=== PATIENT | male | born 1940 | race Hispanic/Latino ===

== ENCOUNTER 2016-11-02 10:21 | Day surgery (SDC) | payer MEDICARE ==
[~2016-11-02] VITALS: Ht 172.7 cm; Wt 95.2 kg
[~2016-11-02 10:21] MED LIST: CLOT15CR4 TP; FENO145T19 PO; GABA-502 PO; GLIP10TA10 PO; KLO1T PO; LIP40 PO; LISI40TA PO; METF10002 PO; MIRT30TA6 PO; OMEP-113 PO; PROP80CA2 PO; PRV40T PO; QUET300T PO; RISP0.5T14 PO; ZYL100 PO
[2016-11-02] MEDS ORDERED: fentaNYL-PF 50 mCg/mL 2 mL Inj ONE (10:22)
[2016-11-02] MEDS ORDERED: Propofol 10,000 mCg/mL 20 mL Inj ONE (10:22)
[2016-11-02 10:32] VITALS: BP 171/86; PULSE 76; RESP 14; O2SAT 94
[2016-11-02] MEDS ORDERED: PANT40TA3 PO (10:39)
[2016-11-02] MEDS: Lactated Ringer's 1,000 ML IV ONE ×2 (10:51→11:22)
[2016-11-02] MEDS ORDERED: PREN-12 PO (10:59)
[2016-11-02] MEDS ORDERED: DOCU250C2 PO (10:59)
[2016-11-02] MEDS ORDERED: MAGN400T39 PO (10:59)
[2016-11-02] MEDS ORDERED: INSU100I13 SUBQ (10:59)
[2016-11-02] MEDS ORDERED: DIVA250T2 PO (10:59)
[2016-11-02] MEDS ORDERED: TAMS0.4C98 PO (10:59)
[2016-11-02] MEDS ORDERED: ACET-171 PO (10:59)
[2016-11-02] MEDS ORDERED: CREST10T PO (10:59)
[2016-11-02] MEDS ORDERED: ZOV800 PO (10:59)
[2016-11-02] MEDS ORDERED: METO50TA3 PO (10:59)
[2016-11-02] MEDS ORDERED: CLOP75TA28 PO (10:59)
--- NOTE | 2016-11-02 11:11 | PCM.HPANE ---
Patient Data Surgeon Admitting Provider: Attending Provider:Kevon Womack MD Primary Care Physician:Heraclio Bravo MD Other Provider:Eugeniooc,Michael Anesthesia Reason for Visit Egd Complex Ht/WT & BMI Body Mass Index Allergies Coded Allergies: simvastatin (Verified Allergy, Unknown, 11/12/14) Past Anesthesia History Anesthesia History: Denies:: Abnormal Airway, Anesthesia Reactions, Difficult Intubation, Fam Anesthesia Reaction, Fam Malignant Hypertherm, Malignant Hyperthermia Diabetes History Hx Diabetes?: Yes MRSA MRSA: No Medications Blood Thinner: Aspirin Reported Medications Acyclovir 800 Mg Oeu507 Mg PO 5XD Ref 0 11/02/16 Acetaminophen 500 Mg Ccpzub707 Mg PO Q6H PRN For Pain 11/02/16 Metoprolol Tartrate 50 Mg Tkkwxm79 Mg PO BID 30 Days Ref 0 11/02/16 Clopidogrel 75 Mg Decltg13 Mg PO DAILY Ref 0 11/02/16 Docusate Sodium 250 Mg Guhmrnu057 Mg PO DAILY PRN For Constipation Ref 0 11/02/16 Divalproex ER (Depakote ER)250 Mg Ybewib251 Mg PO DAILY Ref 0 *DAILY USE ONLY* Swallowed whole without chewing to avoid local irritation of the mouth and throat. 11/02/16 Vit W-Ca,Fe,FA(<1 mg) ( Formula)1 Each Tablet1 Each PO DAILY 11/02/16 Magnesium Oxide (Magnesium)400 Mg Symvwj882 Mg PO BID 11/02/16 Insulin Glargine (Lantus U100 Solostar Insulin Pen)100 Unit/1 Ml Insuln.pen20 Unit SUBQ DAILY #1 PENINJ Ref 0 11/02/16 Tamsulosin (Flomax)0.4 Mg Capsule0.4 Mg PO DAILY Ref 0 11/02/16 Rosuvastatin Calcium (Crestor)10 Mg Uurowy48 Mg PO DAILY 30 Days Ref 0 11/02/[address] 40 Mg Tablet.dr40 Mg PO BID Ref 0 11/02/16 Clotrimazole 15 Gm Cream..g.1 % Tp Bid 11/12/14 Mirtazapine 30 Mg Jehtzd74 Mg PO HS #30 TABLET Ref 0 11/12/14 Quetiapine Fumarate (Seroquel)300 Mg Clexll107 Mg PO HS #30 TABLET Ref 0 11/12/14 Gabapentin 300 Mg Fstwpal058 Mg PO BID 30 Days Ref 0 11/12/14 Metformin 1,000 Mg Tablet1,000 Mg PO BIDWM 30 Days Ref 0 11/12/14 Pravastatin (Pravachol)40 Mg Tab40 Mg PO HS 30 Days Ref 0 11/12/14 Allopurinol 100 Mg Fytvit774 Mg PO TID 30 Days Ref 0 11/12/14 Lisinopril 40 Mg Ieonmw14 Mg PO DAILY 30 Days Ref 0 11/12/14 Clonazepam 1 Mg Tab1 Mg PO TID PRN For Anxiety 30 Days Ref 0 11/12/14 Glipizide 10 Mg Ftiqee30 Mg PO DAILY 30 Days 11/12/14 Fenofibrate Nanocrystallized (Fenofibrate)145 Mg Gtlrgs128 Mg PO DAILY 30 Days Ref 0 11/12/14 Risperidone (Risperdal)0.5 Mg Tablet0.5 Mg PO DAILY #30 TABLET Ref 0 11/12/14 Discontinued Reported Medications Propranolol ER 80 Mg Cap.sa.24h80 Mg PO TID 11/12/14 Atorvastatin (Lipitor)40 Mg Tygqlv65 Mg PO DAILY 30 Days Ref 0 11/12/14 Omeprazole Magnesium (Omeprazole)20 Mg Capsule.dr20 Mg PO DAILY 30 Days Ref 0 11/12/14 History HEENT History: Denies:: Abnormal Airway Difficult Intubation Dysphagia Hearing Problem Hx of Heart Problems?: Yes Cardiovascular History: Positive for:: Hypertension Denies:: AICD Atrial Fibrillation Chest Pain Pacemaker Valvular Heart Disease Hx of Respiratory Problem?: No Respiratory History: Denies:: Asthma COPD Cough Hemoptysis Pneumonia Tuberculosis Neurological History: Denies:: CVA Hx of GI Problems?: Yes Gastrointestinal History: Positive for:: Gastroesphageal Reflux (REASON FOR EXAM) Denies:: Cirrhosis Diverticulitis Hiatal Hernia Rectal Bleeding Musculoskeletal History: Denies:: Joint Replacement Psycho Social History: Positive for:: Hx Depression Denies:: Anxiety Hx Surgeries?: No Hx Any Other Health Problems?: Yes Hx Diabetes: Yes Hx Alcohol Use: No Smoking Status: Never Smoker Stop/Bang Risk Assessment Category Category 1A: Patient has history of documented sleep apnea, and HAS NOT received any narcotic, sedative or anesthesia administration during this stay. Category 1B: Patient has history of documented sleep apnea, and HAS received any narcotic , sedative or anesthesia administration during this stay Category 2: Patient has SUSPECTED Obstructive Sleep Apnea, and HAS received any narcotic , sedative or anesthesia administration during this stay. Category 3: Patient has SUSPECTED Obstructive Sleep Apnea and HAS NOT received narcotic, sedative or anesthesia administration during this stay. Category 4: Outpatient in Procedural Areas with known sleep apnea or who screen positive for High Risk via the STOP/BANG questionnaire. Exam Exam General Appearance: Alert, Oriented X3, Cooperative, No Acute Distress HEENT/AIRWAY: MP 3 Lungs: Clear to Auscultation Heart: Exam Unremarkable Plan Impression Patient chart reviewed, patient interviewed and anesthestic plan with risks, benefits, and alternatives discussed, and informed consent obtained. NPO Status: > 8 hrs ASA Physical Status: ASA3 Severe Disease Anesthetic Plan: MAC Bene/Risks/Altern/Consents: Yes HP Complete Prior to Induction: Yes Dayday Bernard MD Nov 02, 2016 08:00
[2016-11-02 11:27] VITALS: BP 146/79; PULSE 69; RESP 16; O2SAT 92
--- NOTE | 2016-11-02 11:33 | PCM.ANEP2 ---
Post Anesthesia Evaluation ASA/CMS Post Anesthesia VS in Patient's Normal Range?: Yes Resp Stable; Airway Patent?: Yes CV Function & Hydration Stable: Yes Mental Status Recovered?: Yes Pain control Satisfactory?: Yes N/V Control Satisfactory?: Yes Dayday Bernard MD Nov 02, 2016 11:33
[2016-11-02 11:37] VITALS: BP 156/82; PULSE 72; RESP 16; O2SAT 95
[2016-11-02 11:47] VITALS: BP 143/82; PULSE 78; RESP 16; O2SAT 92
--- NOTE | 2016-11-02 13:43 | ENDO ---
[address] [address] ENDOSCOPY PROCEDURE PATIENT: TRISHA SIMPSON : 1940 MR#: [id number] ADMIT: 11/02/2016 JOB ID: [id number] DATE: 11/02/2016 TYPE OF OPERATION: Esophagogastroduodenoscopy with biopsy. PREOPERATIVE DIAGNOSIS(ES): Left upper quadrant pain. POSTOPERATIVE DIAGNOSIS(ES): Mild nonerosive gastritis. ANESTHESIA: Monitored anesthesia care. COMPLICATIONS: None. BLOOD LOSS: Minimal. DESCRIPTION OF PROCEDURE: After risks and benefits were explained to the patient, informed was obtained. After anesthesia administered, the upper endoscope was then inserted into the mouth intubating to the esophagus, stomach, second portion of duodenum. Mucosa carefully examined. After the procedure was done, the scope was withdrawn and the procedure terminated. FINDINGS: Upon inspection of the esophagus, the esophagus was normal without masses, ulcers or lesions. Z-line located 40 cm from incisors. Upon entering stomach, the stomach showed mild nonerosive gastritis. No masses, ulcers, or lesions were seen. Retroflexion was normal. Duodenal bulb, first and second portion normal biopsies taken of the antrum and body of the stomach. IMPRESSIONS: Mild nonerosive gastritis. RECOMMENDATIONS: 1. Await pathology results. 2. Followup in GI clinic as needed.
--- NOTE | 2016-11-03 11:20 | PATH ---
SURGICAL PATHOLOGY Attending Physician:Kevon Womack MD CASE STATUS: Signed Out PATIENT NAME: TRISHA SIMPSON PID: [id number] : 1940 DATE COLLECTED:11/02/2016 19:36 SPECIMEN: 1: Stomach, Antrum, Biopsy 2: Gastric, Biopsy CLINICAL HISTORY: 1. ANTRUM BIOPSY 2. GASTRIC BIOPSY FINAL DIAGNOSIS: 1. Stomach, Antrum, Biopsy: Antral mucosa with mild reactive gastropathy. Negative for inflammation and Helicobacter organisms. Negative for intestinal metaplasia, dysplasia and malignancy. 2. Stomach, Biopsy: Body-type gastric mucosa with no diagnostic abnormality. Negative for inflammation and Helicobacter organisms. Negative for intestinal metaplasia, dysplasia and malignancy. ICD K31.9 GROSS DESCRIPTION: The specimen is received in two formalin filled containers labeled with the patient's name. 1). The specimen is sublabeled "antrum" and consists of 2 portions of tissue which aggregate to 0.4 x 0.3 x 0.3 CM. The specimen is entirely submitted in cassette 1A. 2). The specimen is sublabeled "gastric body" and consists of 2 portions of tissue which aggregate to 0.5 x 0.3 x 0.2 CM. The specimen is entirely submitted in cassette 2A. 11/02/2016 [facility] ICD-9 CODES: CPT CODES: 1: 02096 2: 10993 Electronically Signed Out Campbell Herrera MD, PhD [facility] Pathology [facility]., [address] [place] [address], [place] [address] Technical component performed at [facility], [address] [place] [address] Ave, [address], [place], [address]
[2016-12-02] MEDS ORDERED: DOCU-41 PO (15:26)
[2016-12-02] MEDS ORDERED: INSU100I18 SUBQ (15:26)
[2016-12-02] MEDS ORDERED: DICL100G8 TOPICAL (15:26)
[2016-12-02] MEDS ORDERED: GABA600T2 PO (15:26)
== END 2016-11-02 23:59 | disposition home or self-care (01) ==
LOC: END 10:21
PROVIDERS: ATTEND Internal Medicine Gastroenterology
DX: K29.70 Gastritis, unspecified, without bleeding (principal); K31.9 Disease of stomach and duodenum, unspecified; I10 Essential (primary) hypertension; E11.9 Type 2 diabetes mellitus without complications; E78.00 Pure hypercholesterolemia, unspecified; F32.9 Major depressive disorder, single episode, unspecified; Z86.73 Personal history of transient ischemic attack (TIA), and cerebral infarction without residual deficits; Z79.4 Long term (current) use of insulin; Z79.84 Long term (current) use of oral hypoglycemic drugs; Z79.02 Long term (current) use of antithrombotics/antiplatelets
CPT/HCPCS: 43239; 88305; J7120

== ENCOUNTER 2016-12-03 11:06 | Day surgery (SDC) | payer MEDICARE ==
[~2016-12-03] VITALS: Ht 180.3 cm; Wt 95.0 kg
[~2016-12-03 11:06] MED LIST changes: +ACET-171 PO; +CLOP75TA28 PO; +CREST10T PO; +DICL100G8 TOPICAL; +DOCU-41 PO; +GABA600T2 PO; +INSU100I13 SUBQ; +INSU100I18 SUBQ; -LIP40 PO; +Lactated Ringer's 1,000 ML IV ONE; +Lactated Ringer's 1,000 ML IV SCH; +MAGN400T39 PO; +METO50TA3 PO; -OMEP-113 PO; +PANT40TA3 PO; +PREN-12 PO; -PROP80CA2 PO; +TAMS0.4C98 PO
[2016-12-03] MEDS ORDERED: Propofol 10,000 mCg/mL 20 mL Inj ONE (11:07)
[2016-12-03 11:47] VITALS: BP 163/90; PULSE 78; RESP 16; O2SAT 97
[2016-12-03] MEDS ORDERED: Lactated Ringer's 1,000 ML IV SCH (12:13)
[2016-12-03] MEDS ORDERED: Ondansetron 2 mg/mL 2 mL Inj IVPUSH PRN (12:15)
[2016-12-03] MEDS ORDERED: MetoCLOpramide 5 mg/mL 2 mL Inj IVPUSH PRN (12:15)
[2016-12-03 12:33] VITALS: BP 169/90; PULSE 67; RESP 16; O2SAT 93
[2016-12-03 12:43] VITALS: BP 173/91; PULSE 68; RESP 14; O2SAT 95
[2016-12-03 12:53] VITALS: BP 195/103; PULSE 69; RESP 16; O2SAT 93
--- NOTE | 2016-12-03 13:11 | ENDO ---
[address] [address] ENDOSCOPY PROCEDURE PATIENT: TRISHA SIMPSON : 1940 MR#: [id number] ADMIT: 12/03/2016 JOB ID: [id number] DATE: 12/03/2016 PROCEDURE: Colonoscopy. PREOPERATIVE DIAGNOSIS(ES): Constipation. POSTOPERATIVE DIAGNOSIS(ES): 1. Melanosis coli. 2. Small internal hemorrhoids. ANESTHESIA: Monitored anesthesia care. COMPLICATIONS: None. BLOOD LOSS: Minimal. DESCRIPTION OF PROCEDURE: After risks and benefits were explained to the patient, informed consent was obtained. After anesthesia administered, a colonoscope was inserted from the rectum to the cecum. Mucosa carefully examined. Prep of the patient was fair. After procedure was done, the scope withdrawn and procedure terminated. FINDINGS: Upon inspection of the anus, no masses, hemorrhoids, ulcers, or fissures that were seen. Throughout the entire examination, there are no polyps, masses or lesions. There was melanosis coli throughout the entire colon. Retroflexion showed small internal hemorrhoids. IMPRESSION: 1. Small internal hemorrhoids. 2. Melanosis coli. RECOMMENDATIONS: 1. High-fiber diet. 2. Repeat colonoscopy 10 years for colorectal cancer screening.
--- NOTE | 2016-12-03 15:42 | PCM.ANEP1 ---
Post Anesthesia Phase 1 PACU Phase 1 Assessment Vital Signs Vital Signs Date Time Temp Pulse Resp B/P Pulse Ox O2 Delivery O2 Flow Rate FiO2 12/03/16 12:53 69 16 195/103 93 Room Air 12/03/16 12:43 68 14 173/91 95 Room Air 12/03/16 12:33 67 16 169/90 93 Room Air 12/03/16 11:47 36.0 78 16 163/90 97 Room Air Anesthetic Administered: MAC Level of Alertness: Awake, talking TOMAS's with Equal Strength: Yes Pain: No Nausea or Vomiting: No Oxygen Delivery: Room Air Lungs: Clear to Auscultation, Normal Air Movement Dermatome Level: Full Sensation Dequan Khalil MD Dec 03, 2016 15:42
--- NOTE | 2016-12-03 15:42 | PCM.HPANE ---
Patient Data Surgeon Admitting Provider: Attending Provider:Kevon Womack MD Primary Care Physician:Heraclio Bravo MD Other Provider:[facility]oc[facility] Anesthesia Reason for Visit Constipation Ht/WT & BMI Body Mass Index Allergies Coded Allergies: simvastatin (Verified Allergy, Unknown, 12/03/16) Past Anesthesia History Anesthesia History: Denies:: Abnormal Airway, Anesthesia Reactions, Difficult Intubation, Fam Anesthesia Reaction, Fam Malignant Hypertherm, Malignant Hyperthermia Diabetes History Hx Diabetes?: Yes MRSA MRSA: No Medications Blood Thinner: Aspirin Reported Medications Diclofenac Gel (Voltaren Gel)100 Gm Tube1 Applic TOPICAL QID #1 TUBE 12/02/16 Insulin Lispro (HumaLOG U100 Insulin Pen)100 Unit/1 Ml Insuln.pen1 Unit SUBQ DIRECTED #1 PENINJ Ref 0 Blood Sugar Lispro Correction <151 0 units 151-175 1 unit 176-200 2 units 201-225 3 units 226-250 4 units 251-275 5 units 276-300 6 units 301-325 7 units 326-350 8 units 351-375 9 units 376-400 10 units >400 12 units Check blood sugars before meals and at bedtime. Use correction factor only before meals. 12/02/16 Gabapentin 600 Mg Npwkyh471 Mg PO HS Ref 0 12/02/16 Docusate Sodium (Colace)100 Mg Hnidczw039 Mg PO HS PRN For Constipation Ref 0 12/02/16 Acetaminophen 500 Mg Tablet1,000 Mg PO QID PRN For Pain 11/02/16 Metoprolol Tartrate 50 Mg Lsarqc25 Mg PO BID 30 Days Ref 0 11/02/16 Clopidogrel 75 Mg Vggbve21 Mg PO DAILY Ref 0 11/02/16 Vit W-Ca,Fe,FA(<1 mg) ( Formula)1 Each Tablet1 Each PO DAILY 11/02/16 Magnesium Oxide (Magnesium)400 Mg Nyphxo652 Mg PO BID 11/02/16 Insulin Glargine (Lantus U100 Solostar Insulin Pen)100 Unit/1 Ml Insuln.pen20 Unit SUBQ DAILY #1 PENINJ Ref 0 11/02/16 Tamsulosin (Flomax)0.4 Mg Capsule0.4 Mg PO DAILY Ref 0 11/02/16 Rosuvastatin Calcium (Crestor)10 Mg Oickkz74 Mg PO DAILY 30 Days Ref 0 11/02/[address] 40 Mg Tablet.dr20 Mg PO DAILY Ref 0 11/02/16 Clotrimazole 15 Gm Cream..g.1 % Tp Bid 11/12/14 Mirtazapine 30 Mg Jbrrqn43 Mg PO HS #30 TABLET Ref 0 11/12/14 Quetiapine Fumarate (Seroquel)300 Mg Mikwwl008 Mg PO HS #30 TABLET Ref 0 11/12/14 Gabapentin 300 Mg Eljnlrb642 Mg PO MORNING 30 Days Ref 0 11/12/14 Metformin 1,000 Mg Tablet1,000 Mg PO BIDWM 30 Days Ref 0 11/12/14 Allopurinol 100 Mg Tthtwy415 Mg PO HS 30 Days Ref 0 11/12/14 Lisinopril 40 Mg Uxmmag00 Mg PO DAILY 30 Days Ref 0 11/12/14 Clonazepam 1 Mg Tab1 Mg PO TID PRN For Anxiety 30 Days Ref 0 11/12/14 Glipizide 10 Mg Lncgjr84 Mg PO BID 30 Days 11/12/14 Fenofibrate Nanocrystallized (Fenofibrate)145 Mg Qqreee648 Mg PO DAILY 30 Days Ref 0 11/12/14 Risperidone (Risperdal)0.5 Mg Tablet0.5 Mg PO DAILY #30 TABLET Ref 0 11/12/14 Discontinued Reported Medications Pravastatin (Pravachol)40 Mg Tab40 Mg PO HS 30 Days Ref 0 11/12/14 Acyclovir 800 Mg Qru462 Mg PO 5XD Ref 0 11/02/16 Docusate Sodium 250 Mg Tikxslp511 Mg PO DAILY PRN For Constipation Ref 0 11/02/16 Divalproex ER (Depakote ER)250 Mg Usvxwy680 Mg PO DAILY Ref 0 *DAILY USE ONLY* Swallowed whole without chewing to avoid local irritation of the mouth and throat. 11/02/16 History HEENT History: Denies:: Abnormal Airway Difficult Intubation Dysphagia Hearing Problem Hx of Heart Problems?: Yes Cardiovascular History: Positive for:: Hypertension Denies:: AICD Atrial Fibrillation Chest Pain Pacemaker Valvular Heart Disease Hx of Respiratory Problem?: No Respiratory History: Denies:: Asthma COPD Cough Hemoptysis Pneumonia Tuberculosis Neurological History: Denies:: CVA Hx of GI Problems?: Yes Gastrointestinal History: Positive for:: Gastroesphageal Reflux (REASON FOR EXAM) Denies:: Cirrhosis Diverticulitis Hiatal Hernia Rectal Bleeding Musculoskeletal History: Denies:: Joint Replacement Psycho Social History: Positive for:: Hx Depression Denies:: Anxiety Hx Surgeries?: No Hx Any Other Health Problems?: Yes Hx Diabetes: Yes Hx Alcohol Use: No Smoking Status: Never Smoker Stop/Bang Risk Assessment Category Category 1A: Patient has history of documented sleep apnea, and HAS NOT received any narcotic, sedative or anesthesia administration during this stay. Category 1B: Patient has history of documented sleep apnea, and HAS received any narcotic , sedative or anesthesia administration during this stay Category 2: Patient has SUSPECTED Obstructive Sleep Apnea, and HAS received any narcotic , sedative or anesthesia administration during this stay. Category 3: Patient has SUSPECTED Obstructive Sleep Apnea and HAS NOT received narcotic, sedative or anesthesia administration during this stay. Category 4: Outpatient in Procedural Areas with known sleep apnea or who screen positive for High Risk via the STOP/BANG questionnaire. Exam Exam General Appearance: Alert, Oriented X3, Cooperative, No Acute Distress HEENT/AIRWAY: MP 2 Lungs: Clear to Auscultation, Normal Air Movement Heart: Exam Unremarkable, Regular Rate/Rhythm, No Murmurs/Rubs/Gallops Plan Impression Patient chart reviewed, patient interviewed and anesthestic plan with risks, benefits, and alternatives discussed, and informed consent obtained. NPO Status: > 8 hrs ASA Physical Status: ASA2 Mod Systemic Disease Anesthetic Plan: MAC Bene/Risks/Altern/Consents: Yes HP Complete Prior to Induction: Yes Dequan Khalil MD Dec 03, 2016 07:29
--- NOTE | 2016-12-03 15:42 | PCM.ANEP2 ---
Post Anesthesia Evaluation ASA/CMS Post Anesthesia VS in Patient's Normal Range?: Yes Resp Stable; Airway Patent?: Yes CV Function & Hydration Stable: Yes Mental Status Recovered?: Yes Pain control Satisfactory?: Yes N/V Control Satisfactory?: Yes Dequan Khalil MD Dec 03, 2016 15:42
== END 2016-12-03 23:59 | disposition home or self-care (01) ==
LOC: END 11:06
PROVIDERS: ATTEND Internal Medicine Gastroenterology
DX: K63.89 Other specified diseases of intestine (principal); K64.8 Other hemorrhoids; K59.00 Constipation, unspecified; R10.12 Left upper quadrant pain; K21.9 Gastro-esophageal reflux disease without esophagitis; I10 Essential (primary) hypertension; E11.9 Type 2 diabetes mellitus without complications; F32.9 Major depressive disorder, single episode, unspecified; E78.00 Pure hypercholesterolemia, unspecified; Z87.442 Personal history of urinary calculi; Z79.82 Long term (current) use of aspirin; Z79.4 Long term (current) use of insulin; Z79.84 Long term (current) use of oral hypoglycemic drugs; Z86.73 Personal history of transient ischemic attack (TIA), and cerebral infarction without residual deficits; Z79.02 Long term (current) use of antithrombotics/antiplatelets
CPT/HCPCS: 45378; J7120